=== PATIENT | female | born 1965 | race Caucasian/White ===

== ENCOUNTER 2018-09-04 10:18 | Emergency (ER) | payer OTHER ==
--- NOTE | 2018-09-04 10:24 | EDPHY ---
H & P Time Seen by Provider: 09/04/18 10:24 HPI/ROS: CHIEF COMPLAINT: Left ankle injury HISTORY OF PRESENT ILLNESS: Patient is a 53-year-old female with no significant past medical history who states she was walking the dog this morning about an hour ago when she slipped on some ice and twisted her left ankle. She states that she has been unable to bear weight since. When she twisted the ankle was on the ground her ankle. To be deviated to the left. She she states that she pulled on the ankle and put it back in place. She has tried no medication to alleviate her pain. She denies any numbness but does report decreased range of motion. She takes no prescribed medication. ROS As detailed in HPI Smoking Status: Never smoked Physical Exam: General: Alert and oriented. Nontoxic appearing. No acute distress HEENT: Pupils PERRLA. No oral lesions. Cardiopulmonary: Regular rate and rhythm. No lower extremity edema Skin: [place] warm and dry. No lesions. Muscle skeletal: Moving all 4 extremities. Equal strength in upper extremities and lower extremities. non Ambulatory. Pedal pulse is strong in the left foot. Cap refill less than 3 sec. Swelling to the medial and lateral malleolus. No knee or proximal tibia tenderness. Constitutional: Initial Vital Signs Temperature (C) 36.8 C 09/04/18 10:19 Heart Rate 76 09/04/18 10:19 Respiratory Rate 18 09/04/18 10:19 Blood Pressure 123/78 H 09/04/18 10:19 O2 Sat (%) 96 09/04/18 10:19 O2 Delivery Mode Room Air Allergies/Adverse Reactions: No Known Allergies Allergy (Unverified 09/04/18 10:21) Home Medications: Medication Instructions Recorded Hydrocodone/APAP 5/325 [[place] 1 tab PO Q6 #16 tab 09/04/18 5/325 (*)] Medical Decision Making - Diagnostics Imaging Results: Imaging Impressions Ankle X-Ray 09/04/18 10:25 Impression: Unstable bimalleolar fracture. Procedures: Three way splint applied to the left ankle. She was comfortable and pain decreased after oral medications and splint application. She was fit for crutches also. She was neurovascular intact at time of discharge after splint placement. ED Course/Re-evaluation: 53-year-old female here with left ankle pain after she rolled her ankle walking her dog. Unfortunately she does have an unstable by bimalleolar ankle fracture. Discussed the case with Dr. Marques on-call for orthopedics agrees with plan to follow up in his office tomorrow morning after application of splint and made nonweightbearing. Patient is agreeable with this plan we discussed elevation of the extremity decreased swelling. Differential Diagnosis: Fracture, dislocation, compartment syndrome, neurovascular injury - Data Points Medications Given: Discontinued Medications Hydrocodone Bitart/Acetaminophen ([place] 5/325) 1 tab PO EDNOW ONE Stop: 09/04/18 10:31 Last Admin: 09/04/18 10:44 Dose: 1 tab Ibuprofen (Motrin) 600 mg PO EDNOW ONE Stop: 09/04/18 10:31 Last Admin: 09/04/18 10:44 Dose: 600 mg Departure - Departure Disposition: Home, Routine, Self-Care Clinical Impression: Bimalleolar fracture of left ankle Condition: Good Instructions: Ankle Fracture (ED) Additional Instructions: Follow-up with Orthopedics tomorrow. Please call their office today. Elevate the leg as often as possible. Referrals: Marta Horton MD [Primary Care Provider] - As per Instructions Jason Marques MD [Medical Doctor] - As per Instructions Prescriptions: Hydrocodone/APAP 5/325 [[place] 5/325 (*)] 1 tab PO Q6 #16 tab
[2018-09-04] MEDS ORDERED: IBUPROFEN 600 MG TAB PO ONE (10:30)
[2018-09-04] MEDS ORDERED: HYDROCODONE/APAP 5/325 TAB PO ONE (10:30)
[2018-09-04 13:23] VITALS: BP 104/68
== END 2018-09-04 13:23 | disposition home or self-care (01) ==
PROC: 2W3RX1Z Immobilization of Left Lower Leg using Splint (ICD-10-PCS; principal; 2018-09-04)
DX: S82.842A Displaced bimalleolar fracture of left lower leg, initial encounter for closed fracture (principal); W00.0XXA Fall on same level due to ice and snow, initial encounter; Y93.K1 Activity, walking an animal; Y92.480 Sidewalk as the place of occurrence of the external cause